=== PATIENT | female | born 1990 | race Caucasian/White ===

== ENCOUNTER → 2017-03-12 | Outpatient (CLI) | payer OTHER ==
--- NOTE | 2017-03-12 11:21 | REP ---
Clinical: Palpable mass. Technique: Real time aragon scale and color evaluation using linear high frequency transducer. Findings: Directed ultrasound examination of the right posterior auricular space demonstrates a normal appearing 8.8 x 8.4 x 3.1 cm lymph node. No fluid collection or mass lesion noted. Impression: Palpable mass corresponds to normal appearing lymph node. Signed by Gato Banks MD 03/12/2017 11:12 A
== END ==
LOC: M RAD 10:46
PROVIDERS: ATTEND Physician Assistant Medical
DX: R22.0 Localized swelling, mass and lump, head (principal)

== ENCOUNTER → 2017-11-14 | Outpatient (REF) | payer OTHER | LOC: M LAB REF 13:52 | DX: J11.1 Influenza due to unidentified influenza virus with other respiratory manifestations (principal) ==

== ENCOUNTER 2018-03-12 08:58 | Emergency (ER) | payer OTHER ==
[2018-03-12] MEDS: KETOROLAC 30 MG/ML VIAL (J1885) IV (10:17)
[2018-03-12] MEDS: ONDANSETRON 4MG/2ML VIAL (J2405) IV (10:17)
[2018-03-12] MEDS: NS 1,000 ML IV (10:17)
[2018-03-12 10:23] LABS: BASO % 0.5 % (0.0-1.0); EOS % 0.7 % (0.0-3.0); HEMATOCRIT 46.8 % (36.0-47.0); HEMOGLOBIN 16.2 g/dl (12.0-15.5); IMMATURE GRANULOCYTE % 0.2 % (0-3.0); LYMPH # 1.6 10^3/uL (1.5-6.5); LYMPH % 26.7 % (24.0-44.0); MEAN CORPUSCULAR HEMOGLOBIN 31.1 pg (27.0-33.0); MEAN CORPUSCULAR HGB CONC 34.6 g/dl (32.0-36.5); MEAN CORPUSCULAR VOLUME 89.8 fl (80.0-96.0); MONO # 0.5 10^3/uL (0.0-0.8); MONO % 7.8 % (0.0-5.0); NEUTROPHILS # 3.9 10^3/uL (1.8-7.7); NEUTROPHILS % 64.1 % (36.0-66.0); PLATELET COUNT, AUTOMATED 353 10^3/uL (150-450); RED BLOOD COUNT 5.21 10^6/uL (4.00-5.40); RED CELL DISTRIBUTION WIDTH 11.5 % (11.5-14.5)
[2018-03-12 10:31] LABS: CONTROL LINE HCG INT CTR LINE PRESENT; HCG, SERUM QUALITATIVE NEGATIVE (NEGATIVE)
[2018-03-12 10:37] LABS: ANION GAP 7 MEQ/L (8-16); BLOOD UREA NITROGEN 12 MG/DL (7-18); CALCIUM LEVEL 9.1 MG/DL (8.5-10.1); CARBON DIOXIDE LEVEL 28 MEQ/L (21-32); CHLORIDE LEVEL 103 MEQ/L (98-107); CREATININE FOR GFR 0.76 MG/DL (0.55-1.30); GLOMERULAR FILTRATION RATE > 60.0 (>60); GLUCOSE, FASTING 86 MG/DL (70-100); POTASSIUM SERUM 4.4 MEQ/L (3.5-5.1); SODIUM LEVEL 138 MEQ/L (136-145)
== END 2018-03-12 11:27 | disposition home or self-care (01) ==
LOC: M ED 08:58
DX: R51 Headache (principal)
CPT/HCPCS: J2405